=== PATIENT | male | born 1990 | race Caucasian/White ===

== ENCOUNTER 2017-03-05 04:20 | Emergency (ER) | payer SELFPAY | END 2017-03-05 05:10 | disposition left against medical advice (07) | LOC: CED 04:20 | DX: Z53.21 Procedure and treatment not carried out due to patient leaving prior to being seen by health care provider (principal) ==

== ENCOUNTER 2017-03-05 04:49 | Emergency (ER) | payer SELFPAY ==
[2017-03-05 04:57] VITALS: O2SAT 99
--- NOTE | 2017-03-05 05:18 | EDPHY ---
H & P Stated Complaint: pt feeling stressed, not taking meds regulary - Personal History Current Tetanus Diphtheria and Acellular Pertussis (TDAP): Unsure - Medical/Surgical History Hx Asthma: Yes Hx Chronic Respiratory Disease: No Hx Diabetes: No Hx Cardiac Disease: No Hx Renal Disease: No Hx Cirrhosis: No Hx Alcoholism: No Hx HIV/AIDS: No Hx Splenectomy or Spleen Trauma: No Other PMH: Bioplar - Social History Smoking Status: Former smoker Time Seen by Provider: 03/05/17 04:59 HPI/ROS: Chief Complaint: Bipolar manic episode HPI: 26-year-old male with a history of bipolar disorder is coming in today with decompensation in his mood. Patient states that he is feeling very manic and pressure with alternating episodes being down and feeling suicidal. He recently moved here from [place] about a week ago. He has not been sleeping for the last 4 nights. He has been taking his lithium as prescribed but has not been taking his olanzapine until last night. He does have a history of prior hospitalizations in the past. Denies any prior suicide attempts. Denies drug use. ROS: 10 point Review of Systems is negative except as noted in the HPI. PMH: Bipolar disorder Medications: [place] 600 mg bid, olanzapine 2.5 mg qhs Social History: No smoking, occasional alcohol, no recreational drug use Family History: non-contributory Physical Exam: Gen: Awake, Alert, No Distress HEENT: Nose: no rhinorrhea Eyes: PERRLA, EOMI Mouth: Moist mucosa Neck: Supple, no JVD Chest: nontender, lungs clear to auscultation Heart: S1, S2 normal, no murmur Abd: Soft, non-tender, no guarding Back: no CVA tenderness, no midline tenderness Ext: no edema, non-tender Skin: no rash Neuro: CN II-XII intact, Sensation grossly intact, Strength 5/5 in bilateral upper and lower extremities (Fletcher Hoffman) Constitutional: Initial Vital Signs Temperature (C) 37 C 03/05/17 04:52 Heart Rate 88 03/05/17 04:52 Respiratory Rate 20 03/05/17 04:52 O2 Sat (%) 99 03/05/17 04:52 O2 Delivery Mode Room Air Allergies/Adverse Reactions: No Known Allergies Allergy (Unverified 03/05/17 04:51) Home Medications: Medication Instructions Recorded [place] Carbonate 03/05/17 Valtrex 03/05/17 Zyprexa 03/05/17 Medical Decision Making ED Course/Re-evaluation: I received a call from the patient's mother, Cordelia Duarte. She wanted to convey that the patient has been well controlled since age of 18 on his current regimen medications but he recently discontinued his olanzapine. She has told me that the patient's doctor in [place] is Dr Kaushik Elizondo, , who would be happy to consult on this case for any questions. 0700 patient signed out to Dr. Walters pending mental health evaluation. ( Fletcher Hoffman) Other Provider: Patient signed out to me at 0700. At 0820, patient has been evaluated by mental health and Dr. Sahni, and is felt to be safe for discharge without outpatient mental health resources. ( Kedar Walters) - Data Points Laboratory Results: Laboratory Results 03/05/17 05:28 03/05/17 05:28 03/05/17 03/05/17 03/05/17 06:15 05:28 05:28 WBC 7.19 10^3/uL 10^3/uL (3.80-9.50) RBC 4.82 10^6/uL 10^6/uL (4.40-6.38) Hgb 14.9 g/dL g/dL (13.7-17.5) Hct 44.1 % % (40.0-51.0) MCV 91.5 fL fL (81.5-99.8) MCH 30.9 pg pg (27.9-34.1) MCHC 33.8 g/dL g/dL (32.4-36.7) RDW 11.9 % % (11.5-15.2) Plt Count 261 10^3/uL 10^3/uL (150-400) MPV 9.9 fL fL (8.7-11.7) Neut % (Auto) 61.0 % % (39.3-74.2) Lymph % (Auto) 27.7 % % (15.0-45.0) Patrick % (Auto) 9.3 % % (4.5-13.0) Eos % (Auto) 1.1 % % (0.6-7.6) Baso % (Auto) 0.8 % % (0.3-1.7) Nucleat RBC Rel Count 0.0 % % (0.0-0.2) Absolute Neuts (auto) 4.38 10^3/uL 10^3/uL (1.70-6.50) Absolute Lymphs (auto) 1.99 10^3/uL 10^3/uL (1.00-3.00) Absolute Monos (auto) 0.67 10^3/uL 10^3/uL (0.30-0.80) Absolute Eos (auto) 0.08 10^3/uL 10^3/uL (0.03-0.40) Absolute Basos (auto) 0.06 10^3/uL 10^3/uL (0.02-0.10) Absolute Nucleated RBC 0.00 10^3/uL 10^3/uL (0-0.01) Immature Gran % 0.1 % % (0.0-1.1) Immature Gran # 0.01 10^3/uL 10^3/uL (0.00-0.10) Sodium 140 mEq/L mEq/L (134-144) Potassium 4.5 mEq/L mEq/L (3.5-5.2) Chloride 102 mEq/L mEq/L (97-110) Carbon Dioxide 22 mEq/l mEq/l (22-31) Anion Gap 16 mEq/L mEq/L (8-16) BUN 14 mg/dL mg/dL (7-23) Creatinine 0.9 mg/dL mg/dL (0.7-1.3) Estimated GFR > 60 Glucose 98 mg/dL mg/dL (70-100) Calcium 10.4 mg/dL mg/dL (8.5-10.4) Urine Opiates Screen NEGATIVE (NEGATIVE) Urine Barbiturates NEGATIVE (NEGATIVE) Ur Phencyclidine Scrn NEGATIVE (NEGATIVE) Ur Amphetamine Screen NEGATIVE (NEGATIVE) U Benzodiazepines Scrn NEGATIVE (NEGATIVE) [place] 1.0 mEq/L mEq/L (0.6-1.2) Urine Cocaine Screen NEGATIVE (NEGATIVE) U Marijuana (THC) Screen NEGATIVE (NEGATIVE) Ethyl Alcohol < 10 mg/dL mg/dL (0-10) Departure - Departure Disposition: Home, Routine, Self-Care Clinical Impression: Bipolar 1 disorder Condition: Good Instructions: Bipolar Disorder (ED) Additional Instructions: Follow-up with your mental health provider as directed. Return to the ED for thoughts of self-harm, racing thoughts or other concerns. Referrals: ODETTE HITCHCOCK [Other] - As per Instructions
[2017-03-05 05:55] LABS: ANION GAP 16 mEq/L (8-16); CALCIUM 10.4 mg/dL (8.5-10.4); CARBON DIOXIDE 22 mEq/l (22-31); CHLORIDE 102 mEq/L (97-110); CREATININE 0.9 mg/dL (0.7-1.3); ETHANOL SERUM < 10 mg/dL (0-10); GLOMERULAR FILTRATION RATE > 60; GLUCOSE 98 mg/dL (70-100); POTASSIUM 4.5 mEq/L (3.5-5.2); SODIUM 140 mEq/L (134-144)
[2017-03-05 06:02] LABS: % IMMATURE GRANULYOCYTES 0.1 % (0.0-1.1); ABSOLUTE IMMATURE GRANULOCYTES 0.01 10^3/uL (0.00-0.10); ADD DIFF? NO; ADD MORPH? NO; ADD SCAN? NO; ATYPICAL LYMPHOCYTE FLAG 30 (0-99); FRAGMENT RBC FLAG 0 (0-99); HEMATOCRIT 44.1 % (40.0-51.0); HEMOGLOBIN 14.9 g/dL (13.7-17.5); LEFT SHIFT FLG 0 (0-99); LIPEMIA HEMOLYSIS FLAG 90 (0-99); MEAN CELL HEMOGLOBIN 30.9 pg (27.9-34.1); MEAN CELL HEMOGLOBIN CONCENTR. 33.8 g/dL (32.4-36.7); MEAN CELL VOLUME 91.5 fL (81.5-99.8); MEAN PLATELET VOLUME 9.9 fL (8.7-11.7); PLATELET CLUMPS FLAG 0 (0-99); PLATELET COUNT 261 10^3/uL (150-400); RED BLOOD CELL COUNT 4.82 10^6/uL (4.40-6.38); RED CELL DISTRIBUTION WIDTH 11.9 % (11.5-15.2)
[2017-03-05] MEDS ORDERED: OLANZapine DISINTEGR 5 MG TAB ONE (06:43)
[2017-03-05 07:30] VITALS: RESP 16
[2017-03-05 08:36] VITALS: BP 150/82; PULSE 82; TEMP 97.9
== END 2017-03-05 08:37 | disposition home or self-care (01) ==
DX: F31.9 Bipolar disorder, unspecified (principal); J45.909 Unspecified asthma, uncomplicated; Z87.891 Personal history of nicotine dependence
CPT/HCPCS: 80305; G0480